=== PATIENT | male | born 1990 | race Caucasian/White ===

== ENCOUNTER 2016-08-14 06:35 | Day surgery (SDC) | payer BC, OTHER ==
[2016-08-14] MEDS ORDERED: Lactated Ringers 1,000 ML IV SCH (06:45)
[2016-08-14] MEDS ORDERED: Sodium Chloride 0.9% 10 ML Syringe FLUSH PRN (06:45)
[2016-08-14] MEDS ORDERED: Propofol 200 MG/20 ML SDV IV ONE (07:35)
[2016-08-14] MEDS ORDERED: Midazolam 1 MG/ML 2 ML SDV IV ONE (07:35)
[2016-08-14] MEDS ORDERED: Rocuronium 100 MG/10 ML MDV IV ONE (07:35)
[2016-08-14] MEDS ORDERED: Succinylcholine 200 MG/10 ML MDV IV ONE (07:35)
[2016-08-14] MEDS ORDERED: fentaNYL 100 MCG/2 ML SDV IV ONE (07:35)
[2016-08-14] MEDS ORDERED: Morphine 10 MG/ML Syringe IVPUSH ONE (07:35)
--- NOTE | 2016-08-14 07:44 | PCM.HP ---
H&P History of Present Illness - General Date of Service: 08/14/16 (seen prior to surgery) Admit Problem/Dx: Admission Diagnosis/Problem Admission Diagnosis/Problem Tonsillitis Source of Information: Patient, Old records History Limitations: Reports: No limitations - History of Present Illness Initial Comments - Free Text/Narative: Here for tonsillectomy for chronic tonsillitis - Related Data Allergies/Adverse Reactions: Allergies Allergy/AdvReac Type Severity Reaction Status Date / Time No Known Allergies Allergy Verified 08/14/16 06:45 Home Medications: Home Meds Multivitamin [Multivitamins] 1 tab PO DAILY 08/14/16 [History] Past Medical History - Past Health History Medical/Surgical History: Denies Medical/Surgical History - Infectious Disease History Infectious Disease History: Reports: Chicken pox - Past Surgical History HEENT Surgical History: Reports: Oral surgery Social & Family History - Tobacco Use Smoking Status *Q: Light Tobacco Smoker Month Tobacco Last Used: 1 WEEK AGO - Caffeine Use Caffeine Use: Reports: Coffee - Recreational Drug Use Recreational Drug Use: No H&P Review of Systems - Review of Systems: Review Of Systems: ROS reveals no pertinent complaints other than HPI. Exam - Exam Exam: See Below - Vital Signs Vital Signs: Last Vital Signs Temp 98.1 F 08/14/16 06:51 Pulse 94 08/14/16 06:51 Resp 15 08/14/16 06:51 BP 138/92 H 08/14/16 06:51 Pulse Ox 99 08/14/16 06:51 Weight: 89.358 kg - Exam General: alert, oriented Neck: supple, trachea midline Lungs: Clear to auscultation, Normal respiratory effort Cardiovascular: regular rate, regular rhythm *Q Meaningful Use (ADM) - VTE *Q VTE Criteria *Q: - Stroke *Q Stroke Criteria *Q: - AMI *Q AMI Criteria *Q: Problem List Initiated/Reviewed/Updated: Yes Orders Last 24hrs: Active Orders 24 hr Category Date Time Status Patient Status [ADT] Routine ADT 08/14/16 06:45 Ordered Verify Patient Consent Obtain [RC] ASDIRECTED Care 08/14/16 06:45 Active Nothing Per Oral Diet [DIET] Diet 08/14/16 Breakfast Ordered Lactated Ringers [Ringers, Lactated] 1,000 ml Med 08/14/16 06:45 Active IV ASDIRECTED Sodium Chloride 0.9% [Saline Flush] Med 08/14/16 06:45 Active 10 ml FLUSH ASDIRECTED PRN Peripheral IV Insertion Adult [OM.PC] Routine Oth 08/14/16 06:45 Ordered Sequential Compression Device [OM.PC] Routine Oth 08/14/16 06:45 Ordered Resuscitation Status Routine Resus Stat 08/13/16 13:11 Ordered Medication Orders Lactated Ringer's (Ringers, Lactated) 1,000 mls @ 125 mls/hr IV ASDIRECTED SATHISH Last Admin: 08/14/16 07:30 Dose: 125 mls/hr Sodium Chloride (Saline Flush) 10 ml FLUSH ASDIRECTED PRN PRN Reason: Keep Vein Open Assessment/Plan Comment:: Chronic tonsillitis Ok to proceed with tonsillectomy
--- NOTE | 2016-08-14 08:06 | PCM.OPNOTE ---
- General Post-Op/Procedure Note Date of Surgery/Procedure: 08/14/16 Operative Procedure(s): Tonsillectomy Findings: Chronic Tonsillitis Pre Op Diagnosis: Chronic Tonsillitis Post-Op Diagnosis: Same Anesthesia Technique: General ET tube Primary Surgeon: Luke Osborne Anesthesia Provider: Xiomara Ahmadi Pathology: Tonsills EBL in mLs: 0 Complications: None Condition: Good
[2016-08-14] MEDS ORDERED: Acetaminophen/HYDROcodone 325-10 MG Tab PO PRN (08:09)
[2016-08-14] MEDS ORDERED: Morphine 2 MG/ML Syringe IVPUSH PRN (08:09)
[2016-08-14 10:00] VITALS: BP 130/89
--- NOTE | 2016-08-14 11:52 | OR ---
DATE OF OPERATION: 08/14/2016 SURGEON: Luke Osborne MD PREOPERATIVE DIAGNOSIS: Chronic tonsillitis. POSTOPERATIVE DIAGNOSIS: Chronic tonsillitis. PROCEDURE: Tonsillectomy. ANESTHESIA: General. DESCRIPTION OF PROCEDURE: The patient was brought to the operating room, where general endotracheal anesthesia was administered. The oral gag retractor was inserted. Both tonsils were chronically inflamed and had pits and white debris in them. The nasopharynx was inspected with the dental mirror and no adenoid tissue was visible. The right tonsil was grasped and retracted toward the midline. Electrocautery was used to dissect along its muscular plane and removed without difficulty. No bleeding occurred. The left tonsil was removed in a similar fashion without difficulty. The retractor was partially released and surgical sites reinspected and remained hemostatic. Retractor was then removed. The patient was extubated and returned to recovery in stable condition. BLOOD LOSS: None. /[id number] CHALO/DONNELL
== END 2016-08-14 10:21 | disposition home or self-care (01) ==
LOC: FB.SDS 06:35
PROVIDERS: ATTEND Surgery
DX: J35.01 Chronic tonsillitis (principal); Z79.899 Other long term (current) drug therapy; Z98.890 Other specified postprocedural states; Z72.0 Tobacco use
CPT/HCPCS: 42826; J7120; 88304; J0131; J0330; J2250; J2270; J2704; J3010